=== PATIENT | female | born 1980 | race Caucasian/White ===

== ENCOUNTER → 2021-07-21 | Outpatient (CLI) | payer BC ==
--- NOTE | 2021-07-21 18:27 | MR ---
EXAMINATION TYPE: MR knee RT wo con DATE OF EXAM: 07/21/2021 COMPARISON: None HISTORY: Right knee pain Multiplanar multiecho imaging of the right knee without contrast. The joint spaces are fairly normal. There is mild knee joint effusion. The anterior and posterior cru ciate ligaments are intact. The lateral meniscus is intact. There is large horizontal tear through the posterior horn of the medi al meniscus. There is also small horizontal tear of the anterior horn of the medial meniscus. The col lateral ligaments appear intact. There is no evidence of a fracture. I see no bony destructive proces s. The patella is intact. IMPRESSION: There is horizontal tears of the anterior and posterior horns of the medial meniscus. Mild knee joint effusion. No fracture. No evidence of ligamentous tear.
== END | disposition home or self-care (01) ==
LOC: RADMRIMAIN 13:30
PROVIDERS: ATTEND Orthopaedic Surgery
DX: M23.321 Other meniscus derangements, posterior horn of medial meniscus, right knee (principal); M23.311 Other meniscus derangements, anterior horn of medial meniscus, right knee

== ENCOUNTER → 2021-07-24 | Outpatient (CLI) | payer BC ==
[2021-07-24 13:54] LABS: Basophils # (A) 0.1 k/uL (0-0.2); Basophils % (A) 1 %; Eosinophils # (A) 0.1 k/uL (0-0.7); Eosinophils % (A) 1 %; HCT 45.2 % (34.0-46.0); HGB 15.1 gm/dL (11.4-16.0); Lymphocytes # (A) 2.6 k/uL (1.0-4.8); Lymphocytes % (A) 33 %; MCH 35.1 pg (25.0-35.0); MCHC 33.3 g/dL (31.0-37.0); MCV 105.4 fL (80.0-100.0); Macrocytosis Slight; Mean Platelet Volume 7.2; Monocytes # (A) 0.3 k/uL (0-1.0); Monocytes % (A) 4 %; Neutrophils # (A) 4.8 k/uL (1.3-7.7); Neutrophils % (A) 61 %; Platelet Count 321 k/uL (150-450); RBC 4.29 m/uL (3.80-5.40); RDW 11.7 % (11.5-15.5); WBC 7.9 k/uL (3.8-10.6)
[2021-07-24 14:15] LABS: Potassium 3.9 mmol/L (3.5-5.1)
== END | disposition home or self-care (01) ==
LOC: LABPAT 12:46
PROVIDERS: ATTEND Orthopaedic Surgery
DX: Z01.812 Encounter for preprocedural laboratory examination (principal); M23.91 Unspecified internal derangement of right knee
CPT/HCPCS: 80051; 85025

== ENCOUNTER 2021-08-09 07:27 | Day surgery (SDC) | payer BC ==
[2021-08-07 14:28] VITALS: BMI 25.6
--- NOTE | 2021-08-08 11:30 | HP ---
HISTORY AND PHYSICAL CHIEF COMPLAINT: Right knee pain. 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 She notes medial and posterior pain along with swelling. She notes it gives out on her. She is having pain at night. She has tried modifying her activities for the past 6 months, without much relief. She has also tried pain medications. PAST MEDICAL HISTORY: Otherwise negative. PAST SURGICAL HISTORY: Negative. CURRENT MEDICATIONS: Hydrocodone and Soma. ALLERGIES: CODEINE and MOTRIN. FAMILY HISTORY: Negative. SOCIAL HISTORY: Significant for one pack per day tobacco use. REVIEW OF SYSTEMS: Sixteen-point review of systems is otherwise reviewed and noncontributory. PHYSICAL EXAMINATION: The patient is approximately 5 feet 7 inches, 166 pounds of mesomorphic habitus. HEENT exam is nonfocal. Neck is supple. She has painless passive motion of the right hip. Straight-leg raise is negative. Active motion of right knee minus 6 to 140 degrees of flexion. She has a trace effusion. She is tender about the medial joint line. Collaterals are stable, Luke is negative. Wander's elicits medial pain. She has an antalgic gait pattern. Her distal neurovascular exam appears intact in the right lower extremity. MRI report right knee 07/21/2021 shows a posteromedial meniscal tear. IMPRESSION: Right knee internal derangement with symptomatic medial meniscal tear. RECOMMENDATIONS: I talked to the patient at length regarding her condition along with treatment options. She is having significant pain and mechanical symptoms after this acute injury despite attempted conservative measures. After a thorough discussion, she opts to proceed with surgery. We will plan to proceed with arthroscopic evaluation with probable partial medial meniscectomy. We will likely perform that as an outpatient procedure. Risks and benefits were discussed at length in layman's terms. MMODL / IJN: [id number] /
[~2021-08-09 07:27] MED LIST: DEXAMETHASONE SOD PHOSPHATE 4 MG/ML 1 ML VIAL IV ONE; LACTATED RINGERS 1,000 ML IV SCH; ONDANSETRON 4 MG/2 ML VIAL IVP ONE
[2021-08-09] MEDS ORDERED: LIDOCAINE 1% (10MG/ML) FOR IV START INTRADERMA ONE (08:05)
[2021-08-09] MEDS ORDERED: SCOPOLAMINE 1.5MG/72HR PATCH TRANSDERM ONE (08:09)
[2021-08-09] MEDS ORDERED: MIDAZOLAM 2 MG/2 ML VIAL ONE (08:55)
[2021-08-09] MEDS ORDERED: HYDROmorphone (PF) 1 MG/ML ONE (08:55)
[2021-08-09] MEDS ORDERED: fentaNYL (PF) 50 MCG/ML 2 ML AMP ONE (08:55)
[2021-08-09] MEDS ORDERED: LIDOCAINE 1% INJ 10MG/ML (20 ML MDV) ONE (08:55)
[2021-08-09] MEDS ORDERED: PROPOFOL 10 MG/ML 20 ML VIAL IV ONE (08:55)
[2021-08-09] MEDS ORDERED: SODIUM CHLORIDE 0.9% IRRIGATION ONE (09:17)
[2021-08-09] MEDS ORDERED: EPINEPHRINE IRRIGATION ONE (09:17)
[2021-08-09] MEDS ORDERED: LACTATED RINGERS 1,000 ML IV ONE (09:31)
--- NOTE | 2021-08-09 09:42 | P.OP ---
Date of Procedure: 08/09/21 Preoperative Diagnosis: Right knee internal derangement Postoperative Diagnosis: Right knee posterior medial meniscal tear Procedure(s) Performed: Right knee arthroscopic partial medial meniscectomy Anesthesia: JESSIEA Surgeon: Davon Biggs Estimated Blood Loss (ml): 10 Pathology: none sent Condition: stable Disposition: PACU Indications for Procedure: The patient's a 40-year-old female presents with right knee pain and mechanical symptoms after previous twisting injury despite conservative treatment. A discussion of the risks and benefits of operative intervention versus continued conservative measures was made with patient. She to proceed with surgery. Operative risks to include infection, neurovascular injury, development of blood clots, possible incomplete resolution of symptoms, possible worsening symptoms and need for subsequent procedures was discussed. Informed consent was obtained. Operative Findings: As below Description of Procedure: The patient was brought to the operating room, and after induction of general anesthesia examined the right knee. Collaterals were stable, Luke was negative, and posterior drawer was negative. The right lower extremity was prepped and draped in a normal fashion. A superior lateral portal was made through a 3 mm skin incision superior and lateral to the patella. This was used for outflow. A lateral portal was made through a 5 mm vertical skin incision lateral to the patella tendon above the joint line. Diagnostic arthroscopy was performed. On inspection of the medial compartment, a complex tear involving the posterior horn medial meniscus in the white-white junction was noted. This was debrided back to stable base with straight baskets and a motorized shaver. On inspection of the notch, the anterior cruciate ligament appeared to be intact . On inspection of the lateral compartment, there is some chondral fibrillation however no loose chondral fragments.. On inspection of the patellofemoral articulation, there is grade 2 degenerative changes diffusely.. The gutters were clear debris. The knee was then thoroughly irrigated. The portals were closed with Steri-Strips. A sterile dressing was applied in addition to a compression stocking. The patient was awoken from general anesthesia and transferred to recovery room in good condition. Blood loss was estimated at 10 mL. No complications were incurred.
[2021-08-09 09:52] VITALS: TEMP 97.2
[2021-08-09] MEDS: fentaNYL (PF) 50 MCG/ML 2 ML AMP IV PRN ×2 (09:56→10:00)
[2021-08-09 10:31] VITALS: RESP 16
[2021-08-09] MEDS ORDERED: HYDROcodone/APAP 10-325MG 1 EACH TAB ONE (10:34)
[2021-08-09] MEDS ORDERED: HYDROcodone/APAP 10-325MG 1 EACH TAB PO ONE (10:35)
[2021-08-09 10:48] VITALS: BP 133/84; PULSE 81
== END 2021-08-09 11:03 | disposition home or self-care (01) ==
LOC: OR 07:27
PROVIDERS: ATTEND Orthopaedic Surgery
DX: S83.241A Other tear of medial meniscus, current injury, right knee, initial encounter (principal); X50.1XXA Overexertion from prolonged static or awkward postures, initial encounter; F17.210 Nicotine dependence, cigarettes, uncomplicated; Z88.6 Allergy status to analgesic agent; Z88.5 Allergy status to narcotic agent
CPT/HCPCS: 29881; J0171; J2250; J1100; J0690; J2405; J2001; J3010; J1170; J2704